=== PATIENT | female | born 1950 | race Caucasian/White ===

== ENCOUNTER → 2019-07-08 | Outpatient (CLI) | payer MEDICARE | END | disposition home or self-care (01) | LOC: RAH 13:25 | PROVIDERS: ATTEND Family Medicine | DX: Z12.31 Encounter for screening mammogram for malignant neoplasm of breast (principal) | CPT/HCPCS: 77067 ==

== ENCOUNTER → 2020-08-12 | Outpatient (CLI) | payer MEDICARE | END | disposition home or self-care (01) | LOC: RAH 10:04 | PROVIDERS: ATTEND Family Medicine | DX: Z12.31 Encounter for screening mammogram for malignant neoplasm of breast (principal); N64.89 Other specified disorders of breast | CPT/HCPCS: 77067 ==

== ENCOUNTER → 2021-08-31 | Outpatient (CLI) | payer MEDICARE | END | disposition home or self-care (01) | LOC: RAH 08:22 | PROVIDERS: ATTEND Family Medicine | DX: Z12.31 Encounter for screening mammogram for malignant neoplasm of breast (principal) | CPT/HCPCS: 77067 ==

== ENCOUNTER → 2023-09-18 | Outpatient (CLI) | payer MEDICARE | END | disposition home or self-care (01) | LOC: RAH 12:44 | PROVIDERS: ATTEND Family Medicine | DX: Z12.31 Encounter for screening mammogram for malignant neoplasm of breast (principal) | CPT/HCPCS: 77067 ==

== ENCOUNTER → 2024-12-31 | Outpatient (CLI) | payer MEDICARE ==
--- NOTE | 2025-01-02 11:48 | HMCIMG ---
MAMMO SCREENING BILATERAL HISTORY: Screening mammogram. COMPARISON: 09/18/2023 TECHNIQUE: Bilateral screening mammogram with CAD was performed with craniocaudal and mediolateral oblique projections. FINDINGS: There are scattered areas of fibroglandular density. There is no evidence of a dominant mass, or suspicious microcalcification. There is no evidence of nipple retraction or skin thickening. IMPRESSION: 1. Stable mammogram. Patient was entered into a reminder system with a target due date for their next mammogram. BI-RADS: CATEGORY 2: BENIGN FINDINGS Recommend monthly self breast exam as well as annual clinical examination. A negative x-ray should not delay biopsy if a dominant or clinically suspicious mass is present, since 8-10% of cancers are not identified by mammography. Dense breasts particularly, may obscure an underlying neoplasm. Some of these may be detected clinically and therefore, clinical examination is an essential part of breast evaluation.
== END | disposition home or self-care (01) ==
LOC: RAH 08:44
PROVIDERS: ATTEND Family Medicine
DX: Z12.31 Encounter for screening mammogram for malignant neoplasm of breast (principal); R92.323 Mammographic fibroglandular density, bilateral breasts
CPT/HCPCS: 77067

== ENCOUNTER → 2025-06-25 | Outpatient (CLI) | payer MEDICARE ==
[~2025-06-25] MED LIST: GADOTERATE MEGLUMINE 10 MMOL/20 ML VIAL IV ONE
--- NOTE | 2025-06-25 16:06 | HMCIMG ---
EXAM: MR Right Lower Extremity with and without IV contrast, Knee. CLINICAL HISTORY: M25.561 ??? Pain in right knee. TECHNIQUE: Multisequence, multiplanar magnetic resonance imaging of the right knee performed with and without intravenous contrast. Sequences acquired: 4 - AX T2, 5 - AX T1, 6 - AX 2D MERGE, 7 - COR PD, 8 - COR PD FS, 9 - COR 2D MERGE, 10 - SAG PD, 11 - SAG T2, 12 - G+ SAG T1 FS, 13 - G+ COR T1 FS, 14 - G+ AX T1 FS. CONTRAST: None. COMPARISON: None provided. FINDINGS: LIGAMENTS: Anterior and posterior cruciate, medial and lateral collateral ligaments are intact. TENDONS: Quadriceps, patellar, gastrocnemius, iliotibial band, and popliteus tendons are intact. BONES: No acute fracture or marrow-replacing lesion. Subchondral oedema involving the peripheral aspect of the medial tibial plateau and opposing femoral condyle. MENISCI: Complex tear involving the body and posterior horn of the medial meniscus with medial extrusion measuring 0.9 cm. Lateral meniscus intact. CARTILAGE: Grade II chondral thinning of articular cartilage in all compartments with Grade III chondral loss and subchondral oedema at the medial tibiofemoral articulation. JOINT SPACE / EFFUSION: Moderate joint effusion with suprapatellar extension. No loose body identified. SOFT TISSUES: Periarticular soft tissue swelling noted; no focal collection. IMPRESSION: 1. Complex tear of medial meniscus body and posterior horn with 0.9 cm medial extrusion. 2. Grade III chondral loss and subchondral edema at the medial tibiofemoral articulation, with Grade II chondral thinning in all compartments. 3. Moderate knee joint effusion with suprapatellar extension and periarticular soft tissue swelling. 4. Subchondral edema involving the peripheral aspect of the medial tibial plateau and opposing femoral condyle. 5. Intact anterior and posterior cruciate ligaments, medial and lateral collateral ligaments, and lateral meniscus. 6. No acute fracture or marrow-replacing lesion. /Ulysses
== END | disposition home or self-care (01) ==
LOC: RAH 07:58
PROVIDERS: ATTEND Family Medicine
DX: S83.231A Complex tear of medial meniscus, current injury, right knee, initial encounter (principal); M25.561 Pain in right knee; M25.461 Effusion, right knee; R60.1 Generalized edema; X58.XXXA Exposure to other specified factors, initial encounter; Y93.89 Activity, other specified; Y92.89 Other specified places as the place of occurrence of the external cause; Y99.8 Other external cause status
CPT/HCPCS: 73723; A9575